=== PATIENT | female | born 1975 | race African-American/Black ===

== ENCOUNTER 2024-06-11 20:02 | Emergency (ER) | payer BC ==
[2024-06-11 20:20] VITALS: BP 112/71; PULSE 74; RESP 18; TEMP 98.6; BMI 30.2
[2024-06-11] MEDS ORDERED: IBUPROFEN 400 MG TABLET (FP) PO ONE (21:24)
[2024-06-11] MEDS: IBUPROFEN 400 MG TABLET (FP) PO ONE (21:25)
[2024-06-11] MEDS: CEFPODOXIME PROXETIL 100 MG TABLET PO ONE (21:30)
== END 2024-06-11 21:32 | disposition home or self-care (01) ==
LOC: JER 20:02 → JERFT 20:02
DX: H60.502 Unspecified acute noninfective otitis externa, left ear (principal)
CPT/HCPCS: 99283-25